=== PATIENT | female | born 1965 | race Caucasian/White ===

== ENCOUNTER 2019-04-08 08:46 | Emergency (ER) | payer BC ==
--- OUTSIDE RECORDS SUMMARY | 2019-04-08 08:51 | XMS REPORT ---
:1965 Author Organization [facility] Address [address] [place] [address] [address] [place] [address] Care Team Providers Name Role Phone ISAIAS TEIXEIRA YANCY Unavailable Unavailable Problems This patient has no known problems. Allergies, Adverse Reactions, Alerts This patient has no known allergies or adverse reactions. Medications This patient has no known medications. Results Test Description Test Time Test Comments Text Results Atomic Results Result Comments PT/APTT 2016-08-22 12:16:00 Test Item Value Reference Range Comments PROTIME (BEAKER) (test hlqi=755) 10.8 seconds 9.3-12.0 INR (BEAKER) (test nhfv=810) 1.0 <=5.9 PARTIAL THROMBOPLASTIN TIME (BEAKER) (test esry=845) 28.1 seconds 23.0-35.0 RECOMMENDED COUMADIN/WARFARIN INR THERAPY RANGESSTANDARD DOSE: 2.0 - 3.0 Includes: PROPHYLAXIS forvenous thrombosis, systemic embolization; TREATMENT for venous thrombosis and/or pulmonary embolus.HIGH RISK: Target INR is 2.5-3.5 for patients with mechanical heart valves.BASIC METABOLIC [id number] 12:04: 00 Test Item Value Reference Range Comments SODIUM (BEAKER) (test 143 meq/L 135-148 ifdg=334) POTASSIUM (BEAKER) (test 4.0 meq/L 3.6-5.5 idtb=894) CHLORIDE (BEAKER) (test 105 meq/L 98-106 rnma=569) CO2 (BEAKER) (test 30 meq/L 20-29 icwa=863) BLOOD UREA NITROGEN 17 mg/dL 10-26 (BEAKER) (test xdoh=977) CREATININE (BEAKER) (test 0.80 mg/dL 0.50-1.20 esut=333) GLUCOSE RANDOM (BEAKER) 81 mg/dL 70-110 (test gfwb=014) CALCIUM (BEAKER) (test 9.1 mg/dL 8.5-10.5 hqkz=916) EGFR (BEAKER) (test 77 mL/min/1.73 sq m ESTIMATED GFR IS NOT udov=2564) ACCURATE CREATININE CLEARANCE IN PREDICTING GLOMERULAR FILTRATION RATE. ESTIMATED GFR IS NOT APPLICABLE FOR DIALYSIS PATIENTS. SCREEN, [id number] 11:57:00 Test Item Value Reference Range Comments TEST URINE (BEAKER) (test hfjl=318) Negative CBC W/PLT COUNT & AUTO [id number] 11:55:00 Test Item Value Reference Range Comments WHITE BLOOD CELL COUNT (BEAKER) (test qvaf=084) 4.7 K/ L 4.0-10.0 RED BLOOD CELL COUNT (BEAKER) (test jcbd=650) 4.69 M/ L 4.00-5.00 HEMOGLOBIN (BEAKER) (test yihz=044) 12.5 GM/DL 12.0-15.0 HEMATOCRIT (BEAKER) (test mkfb=560) 38.6 % 36.0-45.0 MEAN CORPUSCULAR VOLUME (BEAKER) (test dwnu=790) 82.3 fL 82.0-99.0 MEAN CORPUSCULAR HEMOGLOBIN (BEAKER) (test 26.7 pg 27.0-33.0 javk=160) MEAN CORPUSCULAR HEMOGLOBIN CONC (BEAKER) (test 32.4 GM/DL 32.0-36.0 qpig=879) RED CELL DISTRIBUTION WIDTH (BEAKER) (test 16.3 % 10.3-14.2 zlyn=683) PLATELET COUNT (BEAKER) (test hjxt=478) 161 K/CU MM 150-430 MEAN PLATELET VOLUME (BEAKER) (test rmha=526) 8.2 fL 6.5-10.5 NUCLEATED RED BLOOD CELLS (BEAKER) (test 0 /100 WBC 0-0 atoy=190) NEUTROPHILS RELATIVE PERCENT (BEAKER) (test 67 % caeu=829) LYMPHOCYTES RELATIVE PERCENT (BEAKER) (test 26 % gcmz=103) MONOCYTES RELATIVE PERCENT (BEAKER) (test 5 % gglh=244) EOSINOPHILS RELATIVE PERCENT (BEAKER) (test 2 % nrji=699) BASOPHILS RELATIVE PERCENT (BEAKER) (test 0 % paee=538) NEUTROPHILS ABSOLUTE COUNT (BEAKER) (test 3.10 K/ L 1.80-8.00 blid=258) LYMPHOCYTES ABSOLUTE COUNT (BEAKER) (test 1.20 K/ L 1.48-4.50 gvvx=214) MONOCYTES ABSOLUTE COUNT (BEAKER) (test 0.20 K/ L 0.00-1.30 mego=236) EOSINOPHILS ABSOLUTE COUNT (BEAKER) (test 0.10 K/ L 0.00-0.50 ccjg=921) BASOPHILS ABSOLUTE COUNT (BEAKER) (test 0.00 K/ L 0.00-0.20 mdtk=782)
[2019-04-08] MEDS ORDERED: DIAZEPAM 10 MG/2 ML INJ SYRINGE ONE (09:21)
[2019-04-08] MEDS ORDERED: dexAMETHasone 10 MG/ML VIAL ONE (09:22)
[2019-04-08] MEDS ORDERED: ONDANSETRON 4 MG/2 ML VIAL ONE (09:22)
[2019-04-08] MEDS ORDERED: MORPHINE 4 MG/ML SYR ONE (09:22)
[2019-04-08 10:16] LABS: Urine Blood NEGATIVE (NEG); Urine Glucose NEGATIVE (NEG); Urine Protein NEGATIVE (NEG)
--- NOTE | 2019-04-08 10:26 | ER ---
Nurse's Notes [facility] Name: Marcelina Quinn Age: 53 yrs Sex: Female : 1965 Arrival Date: 04/08/2019 Time: 08:47 Bed 20 Private MD: Diagnosis: Low back pain Presentation: 04/08 08:58 Presenting complaint: Patient states: low back pain that began 4 days ago. No known ss injury. Transition of care: patient was not received from another setting of care. Onset of symptoms was April 04, 2019. Risk Assessment: Do you want to hurt yourself or someone else? Patient reports no desire to harm self or others. Initial Sepsis Screen: Does the patient meet any 2 criteria? No. Patient's initial sepsis screen is negative. Does the patient have a suspected source of infection? No. Patient's initial sepsis screen is negative. Care prior to arrival: None. 08:58 Method Of Arrival: Ambulatory ss 08:58 Acuity: DIDI 4 ss Historical: - Allergies: 08:59 No Known Allergies; ss - Home Meds: 08:59 None [Active]; ss - PMHx: 08:59 Colon CA; ss - PSHx: 08:59 Breast Augmentation; Colon Resection; ss - Immunization history:: Adult Immunizations up to date. - Social history:: Smoking status: Patient/guardian denies using tobacco. - Ebola Screening: : Patient denies exposure to infectious person Patient denies travel to an Ebola-affected area in the 21 days before illness onset. Screenin:01 Abuse screen: Denies threats or abuse. Nutritional screening: No deficits noted. em Tuberculosis screening: No symptoms or risk factors identified. Fall Risk None identified. Assessment: 09:01 General: Appears in no apparent distress. uncomfortable, well groomed, well developed, em well nourished, Behavior is calm, cooperative, Denies fever. Pain: Complains of pain in lumbar area Pain currently is 9 out of 10 on a pain scale. Neuro: Level of Consciousness is awake, alert, obeys commands, Oriented to person, place, time, situation, Appropriate for age. Cardiovascular: Capillary refill < 3 seconds Patient's skin is warm and dry. Respiratory: Airway is patent Respiratory effort is even, unlabored, Respiratory pattern is regular, symmetrical. GI: Patient currently denies nausea, vomiting. : Denies burning with urination. Derm: Skin is intact, is healthy with good turgor, Skin is pink, warm \T\ dry. Musculoskeletal: Capillary refill < 3 seconds, Range of motion: intact in all extremities. 09:05 Reassessment: The previous assessment is accurate. Call light remains within reach. ss 10:01 Reassessment: Patient appears in no apparent distress at this time. Patient and/or em family updated on plan of care and expected duration. Pain level reassessed. Patient is alert, oriented x 3, equal unlabored respirations, skin warm/dry/pink. rates pain 4/10, ambulated to restroom for UA Patient states feeling better. Patient states symptoms have improved. Vital Signs: 08:59 Pulse 76; Resp 17; Pulse Ox 97% on R/A; Weight 90.72 kg; Height 5 ft. 4 in. (162.56 ss cm); Pain 9/10; 09:01 BP 113 / 88; Temp 98.1(O); em 10:16 BP 107 / 64; Pulse 57; Resp 16; Pulse Ox 98% on R/A; Pain 4/10; em 08:59 Body Mass Index 34.33 (90.72 kg, 162.56 cm) ED Course: 08:47 Patient arrived in ED. as 08:53 Wu Shah LVN is Primary Nurse. em 08:54 Hunter Akbar PA is PHCP. m 08:54 Gabe Avila MD is Attending Physician. m 08:58 Triage completed. ss 08:59 Arm band placed on right wrist. ss 09:01 Patient has correct armband on for positive identification. Bed in low position. Call em light in reach. Adult w/ patient. Pulse ox on. NIBP on. 09:15 Inserted saline lock: 22 gauge in left antecubital area, using aseptic technique. em 10:18 Urine collected: clean catch specimen, clear. em 10:26 No provider procedures requiring assistance completed. IV discontinued, intact, em bleeding controlled, No redness/swelling at site. Pressure dressing applied. Administered Medications: 09:27 Drug: Zofran 4 mg Route: IVP; Site: left antecubital; ss 10:15 Follow up: Response: No adverse reaction em 09:30 Drug: Decadron - Dexamethasone 10 mg Route: IVP; Site: left antecubital; ss 10:14 Follow up: Response: No adverse reaction; Marked relief of symptoms; Pain is decreased em 09:32 Drug: morphine 4 mg Route: IVP; Site: left antecubital; ss 10:15 Follow up: Response: No adverse reaction; Marked relief of symptoms; Pain is decreased em 09:34 Drug: Valium 5 mg Route: IVP; Site: left antecubital; ss 10:15 Follow up: Response: No adverse reaction; Marked relief of symptoms; Pain is decreased em Outcome: 10:25 Discharge ordered by . isiah 10:26 Discharged to home ambulatory, with family. em 10:26 Condition: good 10:26 Discharge instructions given to patient, family, Instructed on discharge instructions, follow up and referral plans. no drinking with medication, no driving heavy equipment, medication usage, Demonstrated understanding of instructions, follow-up care, medications, Prescriptions given X 3. 10:36 Patient left the ED. em Signatures: Hunter Akbar PA PA jmm Munoz, Edgar, EMBROIDERY FINISHER EMBROIDERY FINISHER em Oriana Montgomery Shelby, RN RN ss Corrections: (The following items were deleted from the chart) 09:02 09:01 BP 113 / 88; Pulse Ox 98.1% RA; em em
--- NOTE | 2019-04-08 10:27 | EDPHYS ---
Physician Documentation [facility] Name: Marcelina Quinn Age: 53 yrs Sex: Female : 1965 Arrival Date: 04/08/2019 Time: 08:47 Bed 20 Private MD: ED Physician Gabe Avila HPI: 04/08 09:20 This 53 yrs old Female presents to ER via Ambulatory with complaints of Low jmm Back Pain. 09:20 The patient presents with pain that is acute. Onset: The symptoms/episode jmm began/occurred gradually, 4 day(s) ago. Modifying factors: The patient symptoms are alleviated by nothing, the patient symptoms are aggravated by movement. Associated signs and symptoms: Pertinent negatives: abdominal pain, dysuria, fever, incontinence, urinary retention, weakness. Historical: - Allergies: 08:59 No Known Allergies; ss - Home Meds: 08:59 None [Active]; ss - PMHx: 08:59 Colon CA; ss - PSHx: 08:59 Breast Augmentation; Colon Resection; ss - Immunization history:: Adult Immunizations up to date. - Social history:: Smoking status: Patient/guardian denies using tobacco. - Ebola Screening: : Patient denies exposure to infectious person Patient denies travel to an Ebola-affected area in the 21 days before illness onset. ROS: 09:20 Constitutional: Negative for fever, chills, and weight loss, Cardiovascular: Negative jmm for chest pain, palpitations, and edema, Respiratory: Negative for shortness of breath, cough, wheezing, and pleuritic chest pain. 09:20 MS/Extremity: Negative for injury and deformity. 09:20 Back: Positive for pain with movement, no midline tenderness is appreciated. 09:20 All other systems are negative. Exam: 09:20 Head/Face: atraumatic. Eyes: EOMI, no conjunctival erythema appreciated ENT: Moist jmm Mucus Membranes Neck: Trachea midline, Supple Chest/axilla: Normal chest wall appearance and motion. Cardiovascular: Regular rate and rhythm. No edema appreciated Respiratory: Normal respirations, no respiratory distress appreciated Abdomen/GI: Non distended, soft 09:20 Skin: General appearance color normal MS/ Extremity: Moves all extremities, no obvious deformities appreciated, no edema noted to the lower extremities Neuro: Awake and alert, normal gait Psych: Behavior is normal, Mood is normal, Patient is cooperative and pleasant 09:20 Constitutional: The patient appears alert, awake, uncomfortable. 09:20 Back: ROM is painful, vertebral tenderness, is not appreciated. Vital Signs: 08:59 Pulse 76; Resp 17; Pulse Ox 97% on R/A; Weight 90.72 kg; Height 5 ft. 4 in. (162.56 ss cm); Pain 9/10; 09:01 BP 113 / 88; Temp 98.1(O); em 10:16 BP 107 / 64; Pulse 57; Resp 16; Pulse Ox 98% on R/A; Pain 4/10; em 08:59 Body Mass Index 34.33 (90.72 kg, 162.56 cm) ss MDM: 09:04 Patient medically screened. [facility] 10:21 Data reviewed: vital signs, nurses notes. Counseling: I had a detailed discussion with isiah the patient and/or guardian regarding: the historical points, exam findings, and any diagnostic results supporting the discharge/admit diagnosis, lab results, the need for outpatient follow up, to return to the emergency department if symptoms worsen or persist or if there are any questions or concerns that arise at home. ED course: Pain is relieved in the ED. Patient advised to follow up with pcp and otherwise given strict return precautions. Patient understood and agrees with the plan of care. . 04/08 10:13 Order name: Urine Dipstick--Ancillary (enter results); Complete Time: 10:26 04/08 09:05 Order name: Urine Dipstick-Ancillary (obtain specimen); Complete Time: 10:18 [facility] 04/08 09:13 Order name: Saline Lock; Complete Time: 09:17 [facility] Administered Medications: 09:27 Drug: Zofran 4 mg Route: IVP; Site: left antecubital; ss 10:15 Follow up: Response: No adverse reaction em 09:30 Drug: Decadron - Dexamethasone 10 mg Route: IVP; Site: left antecubital; ss 10:14 Follow up: Response: No adverse reaction; Marked relief of symptoms; Pain is decreased em 09:32 Drug: morphine 4 mg Route: IVP; Site: left antecubital; ss 10:15 Follow up: Response: No adverse reaction; Marked relief of symptoms; Pain is decreased em 09:34 Drug: Valium 5 mg Route: IVP; Site: left antecubital; ss 10:15 Follow up: Response: No adverse reaction; Marked relief of symptoms; Pain is decreased em Disposition: 15:18 Co-signature as Attending Physician, Gabe Avila MD. ma2 Disposition: 04/08/19 10:25 Discharged to Home. Impression: Low back pain. - Condition is Stable. - Discharge Instructions: Back Pain, Adult. - Prescriptions for Valium 5 mg Oral Tablet - take 1 tablet by ORAL route every 8 hours As needed; 20 tablet. Tramadol 50 mg Oral Tablet - take 1 tablet by ORAL route every 8 hours as needed; 12 tablet. Ibuprofen 800 mg Oral Tablet - take 1 tablet by ORAL route every 8 hours As needed take with food; 30 tablet. - Medication Reconciliation Form, Thank You Letter, Antibiotic Education, Prescription Opioid Use form. - Follow up: Private Physician; When: 2 - 3 days; Reason: Recheck today's complaints, Continuance of care, Re-evaluation by your physician. Signatures: Dispatcher [employer] Hunter Diaz PA PA jmm Munoz, Edgar, COMMUNICATION INSTRUCTOR COMMUNICATION INSTRUCTOR Katia Car RN RN ss Alzahri, Mohammad, MD MD ma2 Corrections: (The following items were deleted from the chart) 10:36 10:25 04/08/2019 10:25 Discharged to Home. Impression: Low back pain. Condition is em Stable. Forms are Medication Reconciliation Form, Thank You Letter, Antibiotic Education, Prescription Opioid Use. Follow up: Private Physician; When: 2 - 3 days; Reason: Recheck today's complaints, Continuance of care, Re-evaluation by your physician. isiah
[2019-04-08 10:50] VITALS: BP 107/64; TEMP 98.1; O2SAT 98
== END 2019-04-08 10:36 | disposition home or self-care (01) ==
LOC: ER 08:46
DX: M54.5 Low back pain (principal); Z85.038 Personal history of other malignant neoplasm of large intestine; Z98.82 Breast implant status
CPT/HCPCS: 81003; 96375; 96374; 99284; J3360; J1100; J2405

== ENCOUNTER 2021-01-12 10:06 | Observation (INO) | payer BC ==
[2021-01-12 10:54] LABS: Absolute Lymphocytes (CBC) 2.4 K/uL (0.7-4.9); Basophils % 0.3 % (0-1.3); Hematocrit 41.2 % (36.0-45.0); Lymphocytes % 22.4 % (15.3-44.8); MPV 8.6 fL (7.6-11.3); RBC Red Blood Cell Count 4.59 M/uL (3.86-4.86)
[2021-01-12 10:57] LABS: Protime INR 1.32
--- NOTE | 2021-01-12 11:02 | ER ---
Nurse's Notes [facility] Name: Marcelina Quinn Age: 55 yrs Sex: Female : 1965 Arrival Date: 01/12/2021 Time: 10:23 Bed 15 Private MD: Diagnosis: GI Bleed/ Gastrointestinal hemorrhage, unspecified-lower , sp biopsy;Hypokalemia Presentation: 01/12 10:23 Chief complaint: EMS states: bleed post polypectomy. Coronavirus screen: Vaccine oh status: Patient reports receiving the 2nd dose of the covid vaccine. Ebola Screen: No symptoms or risks identified at this time. Initial Sepsis Screen: Does the patient meet any 2 criteria? No. Patient's initial sepsis screen is negative. Does the patient have a suspected source of infection? No. Patient's initial sepsis screen is negative. Risk Assessment: Do you want to hurt yourself or someone else? Patient reports no desire to harm self or others. Onset of symptoms was January 12, 2021. 10:23 Method Of Arrival: EMS: [facility] [place] 10:23 Acuity: DIDI 3 oh Triage Assessment: 10:28 General: Appears comfortable, Behavior is calm, cooperative, appropriate for age, oh Reports bleeding post polypectomy. Pain: Denies pain. 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 - Social history:: Smoking status: Patient denies any tobacco usage or history of. Patient/guardian denies using. - Family history:: not pertinent. Screenin:30 Abuse screen: Denies threats or abuse. Nutritional screening: No deficits noted. oh Tuberculosis screening: No symptoms or risk factors identified. Fall Risk None identified. Assessment: 10:30 GI: Rectal exam: Bleeding noted. oh 11:06 Reassessment: pt transported to endoscopy suite, for control of polypectomy bleed. oh Vital Signs: 10:23 BP 117 / 78; Pulse 86; Resp 23; Temp 97.9(O); Pulse Ox 100% ; Weight 82.55 kg; Height 5 oh ft. 3 in. (160.02 cm); 10:23 Body Mass Index 32.24 (82.55 kg, 160.02 cm) oh ED Course: 10:23 Patient arrived in ED. aa5 10:23 Yoshi Dodge, RN is Primary Nurse. oh 10:27 Triage completed. oh 10:29 Trung Hatch MD is Attending Physician. elizabeth 10:29 Patient 2 epi injected to bleeding site, 500 ml NS bolus given. oh 10:31 Maintain EMS IV. IV Changed dressing on Flushed. oh 10:32 Bed in low position. Side rails up X2. oh 10:55 XRAY Chest (1 view) In Process Unspecified. EDMS 10:59 Gurwinder Saleh MD is Hospitalizing Provider. elizabeth 11:06 Basic Metabolic Panel Sent. oh Administered Medications: 12:56 Discontinued: NS 0.9% 1000 ml IV at 125 ml/hr continuous elizabeth 11:03 Drug: Zosyn (piperacillin-tazobactam) 3.375 grams Route: IVPB; Infused Over: 60 mins; oh Site: left antecubital; 11:03 Drug: NS 0.9% 1000 ml Route: IV; Rate: 1 bolus; Site: left antecubital; oh 11:03 Drug: NS 0.9% 1000 ml Route: IV; Rate: 125 ml/hr; Site: left antecubital; oh 11:03 Drug: Pepcid (famotidine) 20 mg Route: IVP; Site: left antecubital; oh 13:20 Not Given (pt in [place]): NS 0.9% with KCl 20 mEq/L 1000 ml IV at 125 ml/hr continuous iw 13:21 Not Given (pt in [facility]): Potassium Effervescent Tablet 25 mEq PO once; dissolve in 4 iw ounces of water or juice Outcome: 11:02 Decision to Hospitalize by Provider. elizabeth 13:21 Patient left the ED. iw Signatures: Dispatcher [employer] EDOH Trung Hatch MD MD cha Williams, Irene, RN RN iw Nelida Neal RN RN aa5 Yoshi Dodge, RN RN oh
--- NOTE | 2021-01-12 11:02 | EDPHYS ---
Physician Documentation [facility] Name: Marcelina Quinn Age: 55 yrs Sex: Female : 1965 Arrival Date: 01/12/2021 Time: 10:23 Bed 15 Private MD: ANTHONY Physician Trung Hatch HPI: 01/12 11:02 This 55 yrs old Female presents to ER via EMS with complaints of lower gi elizabeth bleed. 11:02 The patient presents to the emergency department with rectal bleeding, bright red blood elizabeth with bowel movement, with multiple such episodes. Onset: The symptoms/episode began/occurred just prior to arrival, this morning. Abdominal pain: described as constant, crampy. Modifying factors: The symptoms are alleviated by nothing, the symptoms are aggravated by nothing. Associated signs and symptoms: The patient has no apparent associated signs or symptoms. Severity of symptoms: At their worst the symptoms were mild moderate in the emergency department the symptoms are unchanged. The patient has not experienced similar symptoms in the past. 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 - Social history:: Smoking status: Patient denies any tobacco usage or history of. Patient/guardian denies using. - Family history:: not pertinent. ROS: 11:02 Constitutional: Negative for fever, chills, and weight loss, Eyes: Negative for injury, elizabeth pain, redness, and discharge, ENT: Negative for injury, pain, and discharge, Neck: Negative for injury, pain, and swelling, Cardiovascular: Negative for chest pain, palpitations, and edema, Respiratory: Negative for shortness of breath, cough, wheezing, and pleuritic chest pain, Back: Negative for injury and pain, : Negative for injury, bleeding, discharge, and swelling, MS/Extremity: Negative for injury and deformity, Skin: Negative for injury, rash, and discoloration, Neuro: Negative for headache, weakness, numbness, tingling, and seizure, Psych: Negative for depression, anxiety, suicide ideation, homicidal ideation, and hallucinations, Allergy/Immunology: Negative for hives, rash, and allergies, Endocrine: Negative for neck swelling, polydipsia, polyuria, polyphagia, and marked weight changes, Hematologic/Lymphatic: Negative for swollen nodes, abnormal bleeding, and unusual bruising. 11:02 Abdomen/GI: Positive for abdominal pain, rectal bleeding. Exam: 11:02 Constitutional: This is a well developed, well nourished patient who is awake, alert, elizabeth and in no acute distress. Head/Face: Normocephalic, atraumatic. Eyes: Pupils equal round and reactive to light, extra-ocular motions intact. Lids and lashes normal. Conjunctiva and sclera are non-icteric and not injected. Cornea within normal limits. Periorbital areas with no swelling, redness, or edema. ENT: Nares patent. No nasal discharge, no septal abnormalities noted. Tympanic membranes are normal and external auditory canals are clear. Oropharynx with no redness, swelling, or masses, exudates, or evidence of obstruction, uvula midline. Mucous membranes moist. Neck: Trachea midline, no thyromegaly or masses palpated, and no cervical lymphadenopathy. Supple, full range of motion without nuchal rigidity, or vertebral point tenderness. No Meningismus. Chest/axilla: Normal chest wall appearance and motion. Nontender with no deformity. No lesions are appreciated. Cardiovascular: Regular rate and rhythm with a normal S1 and S2. No gallops, murmurs, or rubs. Normal PMI, no JVD. No pulse deficits. Respiratory: Lungs have equal breath sounds bilaterally, clear to auscultation and percussion. No rales, rhonchi or wheezes noted. No increased work of breathing, no retractions or nasal flaring. Abdomen/GI: Soft, non-tender, with normal bowel sounds. No distension or tympany. No guarding or rebound. No evidence of tenderness throughout. Back: No spinal tenderness. No costovertebral tenderness. Full range of motion. Skin: Warm, dry with normal turgor. Normal color with no rashes, no lesions, and no evidence of cellulitis. MS/ Extremity: Pulses equal, no cyanosis. Neurovascular intact. Full, normal range of motion. Neuro: Awake and alert, GCS 15, oriented to person, place, time, and situation. Cranial nerves II-XII grossly intact. Motor strength 5/5 in all extremities. Sensory grossly intact. Cerebellar exam normal. Normal gait. Psych: Awake, alert, with orientation to person, place and time. Behavior, mood, and affect are within normal limits. Vital Signs: 10:23 BP 117 / 78; Pulse 86; Resp 23; Temp 97.9(O); Pulse Ox 100% ; Weight 82.55 kg; Height 5 oh ft. 3 in. (160.02 cm); 10:23 Body Mass Index 32.24 (82.55 kg, 160.02 cm) oh MDM: 10:29 Patient medically screened. 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 Data reviewed: vital signs, [facility] nurses notes, EMS record, lab test result(s), EKG, radiologic studies, CT scan, plain films. Data interpreted: monitoring engineer: rate is 86 beats/min, rhythm is regular, Pulse oximetry: on room air is 100 %. Test interpretation: by ED physician or midlevel provider: ECG, plain radiologic studies. Counseling: I had a detailed discussion with the patient and/or guardian regarding: the historical points, exam findings, and any diagnostic results supporting the discharge/admit diagnosis, lab results, radiology results, the need for further work-up and treatment in the hospital. 01/12 10:37 Order name: Basic Metabolic Panel [facility] 01/12 10:37 Order name: CBC with Diff; Complete Time: 12:55 [facility] 01/12 10:37 Order name: LFT's; Complete Time: 12:55 [facility] 01/12 10:37 Order name: Magnesium; Complete Time: 12:55 [facility] 01/12 10:37 Order name: NT PRO-BNP; Complete Time: 12:55 [facility] 01/12 10:37 Order name: PT-INR; Complete Time: 12:55 [facility] 01/12 10:37 Order name: Troponin (emerg Dept Use Only); Complete Time: 12:55 [facility] 01/12 10:37 Order name: Lipase; Complete Time: 12:55 [facility] 01/12 10:37 Order name: Type And Screen; Complete Time: 12:55 [facility] 01/12 10:37 Order name: Basic Metabolic Panel; Complete Time: 12:55 [facility] 01/12 10:45 Order name: Bb Add On bd 01/12 11:08 Order name: Packed RBC Leukored [facility] 01/12 12:15 Order name: SARS-COV-2 RT PCR; Complete Time: 12:55 [facility] 01/12 10:37 Order name: XRAY Chest (1 view); Complete Time: 12:55 [facility] 01/12 10:37 Order name: EKG; Complete Time: 10:38 [facility] 01/12 12:12 Order name: Clear Liquid [facility] 01/12 12:43 Order name: Basic Metabolic Panel [facility] 01/12 12:43 Order name: Basic Metabolic Panel [facility] 01/12 12:43 Order name: T4 Free [facility] 01/12 12:43 Order name: Thyroid Stimulating Hormone [facility] 01/12 12:44 Order name: Urinalysis [facility] 01/12 12:44 Order name: CBC with Automated Diff [facility] 01/12 12:44 Order name: CBC with Automated Diff [facility] 01/12 10:37 Order name: Cardiac monitoring; Complete Time: 10:39 [facility] 01/12 10:37 Order name: IV Saline Lock; Complete Time: 10:39 [facility] 01/12 10:37 Order name: Labs collected and sent; Complete Time: 11:08 [facility] 01/12 10:37 Order name: O2 Per Protocol; Complete Time: 10:39 [facility] 01/12 10:37 Order name: O2 Sat Monitoring; Complete Time: 10:39 [facility] 01/12 12:43 Order name: Heart Healthy EDMT Administered Medications: 12:56 Discontinued: NS 0.9% 1000 ml IV at 125 ml/hr continuous elizabeth 11:03 Drug: Zosyn (piperacillin-tazobactam) 3.375 grams Route: IVPB; Infused Over: 60 mins; oh Site: left antecubital; 11:03 Drug: NS 0.9% 1000 ml Route: IV; Rate: 1 bolus; Site: left antecubital; oh 11:03 Drug: NS 0.9% 1000 ml Route: IV; Rate: 125 ml/hr; Site: left antecubital; oh 11:03 Drug: Pepcid (famotidine) 20 mg Route: IVP; Site: left antecubital; oh 13:20 Not Given (pt in [place]): NS 0.9% with KCl 20 mEq/L 1000 ml IV at 125 ml/hr continuous iw 13:21 Not Given (pt in [place]): Potassium Effervescent Tablet 25 mEq PO once; dissolve in 4 iw ounces of water or juice Disposition Summary: 01/12/21 11:02 Hospitalization Ordered Hospitalization Status: Observation elizabeth Provider: Gurwinder Saleh cha Location: Telemetry/MedSurg (observation) elizabeth Condition: Fair elizabeth Problem: new elizabeth Symptoms: have improved elizabeth Bed/Room Type: Standard elizabeth Room Assignment: 230(01/12/21 13:12) bd Diagnosis - GI Bleed/ Gastrointestinal hemorrhage, unspecified - lower , sp biopsy elizabeth - Hypokalemia elizabeth Discharge Instructions: - Discharge Summary Sheet bd Forms: - SBAR form bd - Medication Reconciliation Form elizabeth Signatures: Dispatcher [employer] EDMS Madonna Ramirez Corey, MD MD cha Harriott, Oneka, RN RN Becki Keating RN iw Corrections: (The following items were deleted from the chart) 11:16 10:38 CORONAVIRUS+BRZ ordered. EDMS EDMS 13:12 11:02 elizabeth bd
[2021-01-12] MEDS ORDERED: NA CHLORIDE 0.9% 100 ML ONE (11:08)
[2021-01-12] MEDS ORDERED: NA CHLORIDE 0.9% 2,000 ML ONE (11:08)
[2021-01-12] MEDS ORDERED: PIPERACIL/TAZO 3.375 GM VIAL IV ONE (11:09)
[2021-01-12] MEDS ORDERED: FAMOTIDINE 20 MG/2 ML VIAL IV ONE (11:09)
[2021-01-12 11:11] LABS: ALT/SGPT 33 U/L (12-78); AST/SGOT 27 U/L (15-37); Albumin 4.1 g/dL (3.4-5.0); Alkaline Phosphatase 115 U/L (45-117); BUN Blood Urea Nitrogen 13 mg/dL (7-18); Bicarbonate 21 mmol/L (21-32); Bilirubin Direct 0.5 mg/dL (0-0.2); Bilirubin Total 2.7 mg/dL (0.2-1.0); Glucose Level 180 mg/dL (74-106); Lipase 72 U/L (73-393); Magnesium 2.3 mg/dL (1.8-2.4); NT PRO-BNP 95 pg/mL (<125); Protein, Total 7.4 g/dL (6.4-8.2); Sodium Level 142 mmol/L (136-145); Troponin (Emerg Dept Use Only) < 0.02 ng/mL (0.0-0.045)
[2021-01-12] MEDS ORDERED: EPINEPHRINE/PF 1 MG/ML AMP ONE (11:25)
[2021-01-12] MEDS ORDERED: propofoL 200 MG/20 ML VIAL IV ONE (11:45)
[2021-01-12] MEDS ORDERED: LIDOCAINE 1% MPF 5 ML VIAL ONE (11:45)
--- NOTE | 2021-01-12 12:23 | RAD REPORT ---
EXAM DESCRIPTION: RAD - Chest Single View - 01/12/2021 10:55 am CLINICAL HISTORY: COUGH COMPARISON: None TECHNIQUE: AP portable chest image was obtained 01/12/2021 10:55 am . FINDINGS: Lungs are clear. Under penetrated technique and overlying soft tissues accentuate lower cecelia ng field markings. Heart and vasculature are normal. No measurable pleural effusion and no pneumothor ax. No acute bony abnormality seen. No acute aortic findings suspected. IMPRESSION: No acute cardiopulmonary process.
[2021-01-12] MEDS ORDERED: ONDANSETRON 4 MG/2 ML VIAL IV PRN (12:36)
[2021-01-12] MEDS ORDERED: ACETAMINOPHEN 500 MG TAB PO PRN (12:36)
[2021-01-12 13:49] LABS: Thyroid Stimulating Hormone 2.63 uIU/mL (0.360-3.740)
--- NOTE | 2021-01-12 14:22 | P.HP ---
Certification for Inpatient Patient admitted to: Observation With expected LOS: <2 Midnights Patient will require the following post-hospital care: None Practitioner: I am a practitioner with admitting privileges, knowledge of patient current condition, hospital course, and medical plan of care. Services: Services provided to patient in accordance with Admission requirements found in Title 42 Section 412.3 of the Code of Federal Regulations Patient History Date of Service: 01/12/21 Primary Care Provider: Dr. Marroquin; GI-Dr. Cohen/Dr. Johnson Reason for admission: Acute bleeding after colonoscopy History of Present Illness: 55-year-old female presented to the emergency room after she had a colonoscopy. Patient has history of colon cancer status post colectomy with anastomosis. Patient had routine colonoscopy for follow-up. Patient had biopsy done to a particular area of the colon. Bleeding was noted after biopsy. GI tried to stop the bleeding. Bleeding persisted. She was brought in to the hospital for emergent colonoscopy and clipping. Patient reported no significant abdominal pain. Some mild clots from the rectum. Otherwise no significant shortness of breath. By the time I saw the patient she had already had repeat colonoscopy with clipping. Patient overall stable. No complaints noted. Allergies No Known Allergies Allergy (Verified 01/12/21 12:05) Home medications list reviewed: Yes - Past Medical/Surgical History Diabetic: No -: Hypothyroidism -: Colon cancer with history of colectomy/anastomosis and chemotherapy -: Colectomy with anastomosis and lymph node removal Psychosocial/ Personal History: Patient lives at home - Family History Family History: Reviewed- Non-Contributory - Social History Smoking Status: Never smoker Alcohol use: No CD- Drugs: No Caffeine use: No Place of Residence: Home Review of Systems General: As per HPI Eyes: Unremarkable ENT: Unremarkable Respiratory: Unremarkable Cardiovascular: Unremarkable Gastrointestinal: As per HPI Genitourinary: Unremarkable Musculoskeletal: Unremarkable Integumentary: Unremarkable Neurological: Unremarkable Lymphatics: Unremarkable Physical Examination - Vital Signs Temperature: 98.3 F Blood Pressure: 101/56 Pulse: 69 Respirations: 18 Pulse Ox (%): 98 - Studies Laboratory Data (last 24 hrs) 01/12/21 10:40: PT 15.2 H, INR 1.32 01/12/21 10:40: WBC 10.90, Hgb 14.0, Hct 41.2, Plt Count 231 01/12/21 10:40: Sodium 142, Potassium 3.0 L, BUN 13, Creatinine 0.88, Glucose 180 H, Magnesium 2.3, Total Bilirubin 2.7 H, AST 27, ALT 33, Alkaline Phosphatase 115, Lipase 72 L Assessment and Plan - Plan Physical Exam: GENERAL: The patient is a well-developed, well-nourished, in no apparent distress. Alert and oriented x3. VITAL SIGNS: Reviewed HEENT: Head is normocephalic and atraumatic. Extraocular muscles are intact. Pupils are equal, round, and reactive to light and accommodation. Nares appeared normal. Mouth is well hydrated and without lesions. Mucous membranes are moist. NECK: Supple. No carotid bruits. No lymphadenopathy or thyromegaly. LUNGS: Clear to auscultation. No crackles or wheezes are heard. HEART: Regular rate and rhythm, no appreciable gallops, rubs, murmurs or extra heart sounds ABDOMEN: Soft, nontender, and nondistended. Positive bowel sounds. No hepatosplenomegaly was noted. EXTREMITIES: Without any cyanosis, clubbing, rash, lesions or peripheral edema. NEUROLOGIC: The patient is oriented to person, place and time. Strength and sensation are grossly intact. Face is symmetric. SKIN: Normal color, turgor and temperature. No ulcerations or rashes noted. Impression: Lower GI bleed status post colonoscopy with biopsy status post redo colonoscopy with clipping History of colon cancer with prior colectomy and anastomosis with chemo Hypothyroidism Plan: Patient stable after repeat colonoscopy. Clipping done by GI. Spoke with GI. GI recommends to monitor patient overnight. Monitor hemoglobin. If stable patient can be discharged home tomorrow. Patient doing well at this time. Restart home medication. Overall stable. Code Status: Full Code DVT prophylaxis: SCD Advanced Care Planning-30 minutes: Home at discharge Discharge Plan: Home Plan to discharge in: 24 Hours - Advance Directives Does patient have a Living Will: No Does patient have a Durable POA for Healthcare: No - Code Status/Comfort Care Code Status Assessed: Yes (Full code) Time Spent Managing Pts Care (In Minutes): 55
[2021-01-12] MEDS ORDERED: HYDROCODONE/APAP 5/325 MG TAB PO PRN (14:32)
[2021-01-12 14:53] VITALS: BMI 32.2
[2021-01-12] MEDS: METRONIDAZOLE 500mg IVPB 500 MG/100 ML BAG IV SCH (17:58)
[2021-01-12] MEDS: CIPROFLOXACIN 400mg IV 400 MG/200 ML BAG IV SCH (20:26)
[2021-01-12] MEDS ORDERED: MELATONIN 5 MG TABLET PO PRN (20:44)
[2021-01-12] MEDS ORDERED: POTASSIUM CL SA 10 MEQ TAB PO ONE (21:00)
[2021-01-13] MEDS: METRONIDAZOLE 500mg IVPB 500 MG/100 ML BAG IV SCH ×2 (00:06→11:35)
[2021-01-13 05:45] LABS: Absolute Lymphocytes (CBC) 0.7 K/uL (0.7-4.9); Basophils % 0.2 % (0-1.3); Hematocrit 34.5 % (36.0-45.0); Lymphocytes % 21.7 % (15.3-44.8); MPV 8.7 fL (7.6-11.3); RBC Red Blood Cell Count 3.89 M/uL (3.86-4.86)
[2021-01-13 05:54] LABS: BUN Blood Urea Nitrogen 9 mg/dL (7-18); Bicarbonate 24 mmol/L (21-32); Glucose Level 97 mg/dL (74-106); Potassium 3.8 mmol/L (3.5-5.1); Sodium Level 143 mmol/L (136-145)
--- NOTE | 2021-01-13 06:12 | P.PN ---
Subjective Date of Service: 01/13/21 Primary Care Provider: Dr. Marroquin; GI-Dr. Cohen/Dr. Johnson Chief Complaint: Acute bleeding after colonoscopy Subjective: Improving (Patient had some mild bleeding from the rectum but otherwise stable.) Physical Examination - Vital Signs Temperature: 97.8 F Blood Pressure: 97/61 Pulse: 63 Respirations: 18 Pulse Ox (%): 97 - Studies Laboratory Data (last 24 hrs) 01/12/21 10:40: PT 15.2 H, INR 1.32 01/12/21 10:40: WBC 10.90, Hgb 14.0, Hct 41.2, Plt Count 231 01/12/21 10:40: Sodium 142, Potassium 3.0 L, BUN 13, Creatinine 0.88, Glucose 180 H, Magnesium 2.3, Total Bilirubin 2.7 H, AST 27, ALT 33, Alkaline Phosphatase 115, Lipase 72 L Assessment & Plan Discharge Plan: Home Plan to discharge in: 24 Hours Physician Review Additional Text: COVID: Negative Physical Exam: GENERAL: The patient is a well-developed, well-nourished, in no apparent distress. Alert and oriented x3. VITAL SIGNS: Reviewed HEENT: Head is normocephalic and atraumatic. Extraocular muscles are intact. Pupils are equal, round, and reactive to light and accommodation. Nares appeared normal. Mouth is well hydrated and without lesions. Mucous membranes are moist. NECK: Supple. No carotid bruits. No lymphadenopathy or thyromegaly. LUNGS: Clear to auscultation. No crackles or wheezes are heard. HEART: Regular rate and rhythm, no appreciable gallops, rubs, murmurs or extra heart sounds ABDOMEN: Soft, nontender, and nondistended. Positive bowel sounds. No hepatosplenomegaly was noted. EXTREMITIES: Without any cyanosis, clubbing, rash, lesions or peripheral edema. NEUROLOGIC: The patient is oriented to person, place and time. Strength and sensation are grossly intact. Face is symmetric. SKIN: Normal color, turgor and temperature. No ulcerations or rashes noted. Impression: Lower GI bleed status post colonoscopy with biopsy status post redo colonoscopy with clipping History of colon cancer with prior colectomy and anastomosis with chemo Hypothyroidism Plan: Patient stable after repeat colonoscopy. Clipping done by GI. Spoke with GI yesterday concerning plan of care. H&H stable. It did drop to 11.8. Prior hemoglobin 14.0. We will plan for discharge today after breakfast. Code Status: Full Code DVT prophylaxis: SCD Advanced Care Planning-30 minutes: Home at discharge Time Spent Managing Pts Care (In Minutes): 55
[2021-01-13 08:44] VITALS: O2SAT 97
[2021-01-13] MEDS ORDERED: POTASSIUM CL SA 10 MEQ TAB PO ONE (09:00)
--- NOTE | 2021-01-13 09:07 | P.DS ---
Admission Date: 01/12/21 Discharge Date: 01/13/21 Primary Care Provider: Dr. Marroquin; GI-Dr. Cohen/Dr. Johnson Disposition: ROUTINE DISCHARGE Discharge Condition: GOOD Reason for Admission: Acute bleeding after colonoscopy Consultations: GI-Dr. Johnson Procedures: COVID: Negative Medical problem list: Lower GI bleed status post colonoscopy with biopsy status post redo colonoscopy with clipping History of colon cancer with prior colectomy and anastomosis with chemo Hypothyroidism Brief History of Present Illness: 55-year-old female presented to the emergency room after she had a colonoscopy. Patient has history of colon cancer status post colectomy with anastomosis. Patient had routine colonoscopy for follow-up. Patient had biopsy done to a particular area of the colon. Bleeding was noted after biopsy. GI tried to stop the bleeding. Bleeding persisted. She was brought in to the hospital for emergent colonoscopy and clipping. Patient reported no significant abdominal pain. Some mild clots from the rectum. Otherwise no significant shortness of breath. By the time I saw the patient she had already had repeat colonoscopy with clipping. Patient overall stable. No complaints noted. Hospital Course: Patient with history of colon cancer with colectomy and anastomosis. Patient received chemotherapy in the past. Patient had routine colonoscopy yesterday. After biopsy patient had bleeding that was uncontrolled. Patient required hospitalization with repeat colonoscopy in the hospital with clipping to control bleeding. Patient has done well. Hemoglobin upon hospitalization was 14. Hemoglobin 11.8. Patient doing well at this time. No indication of further bleeding. Patient will be discharged home. Recommend to continue home medications. Recommend follow-up with PCP in 1 week to follow-up his hospitalization. Recommend to recheck CBC in 1 week to follow-up her progress. Recommend follow-up with GI to further monitor and address. GI to follow-up on recent biopsy. Patient with hypothyroidism. At discharge patient will continue with her current medication. Vital Signs/Physical Exam: Temp Pulse Resp BP Pulse Ox 97.8 F 63 18 97/61 97 01/13/21 09:04 01/13/21 09:04 01/13/21 09:04 01/13/21 09:04 01/13/21 09:04 General: Alert, In no apparent distress, Oriented x3, Cooperative HEENT: Atraumatic Neck: Supple Respiratory: Clear to auscultation bilaterally Cardiovascular: Normal pulses, Regular rate/rhythm Gastrointestinal: Normal bowel sounds, No ascites, No rebound, No guarding Musculoskeletal: No erythema, No tenderness, No warmth Integumentary: No tenderness/swelling Neurological: Normal speech, Normal strength at 5/5 x4 extr, Normal tone Laboratory Data at Discharge: WBC 3.10 K/uL (4.3-10.9) L D 01/13/21 05:05 Hgb 11.8 g/dL (12.0-15.0) L 01/13/21 05:05 Hct 34.5 % (36.0-45.0) L D 01/13/21 05:05 Plt Count 100 K/uL (152-406) L D 01/13/21 05:05 PT 15.2 SECONDS (9.5-12.5) H 01/12/21 10:40 INR 1.32 01/12/21 10:40 Sodium 143 mmol/L (136-145) 01/13/21 05:05 Potassium 3.8 mmol/L (3.5-5.1) 01/13/21 05:05 BUN 9 mg/dL (7-18) 01/13/21 05:05 Creatinine 0.57 mg/dL (0.55-1.3) 01/13/21 05:05 Glucose 97 mg/dL (74-106) 01/13/21 05:05 Magnesium 2.3 mg/dL (1.8-2.4) 01/12/21 10:40 Total Bilirubin 2.7 mg/dL (0.2-1.0) H 01/12/21 10:40 AST 27 U/L (15-37) 01/12/21 10:40 ALT 33 U/L (12-78) 01/12/21 10:40 Alkaline Phosphatase 115 U/L (45-117) 01/12/21 10:40 Lipase 72 U/L (73-393) L 01/12/21 10:40 Home Medications: Melatonin 10 mg PO BEDTIME PRN PRN 01/12/21 Progesterone, Micronized [Progesterone] 200 mg PO BEDTIME 01/12/21 Thyroid,Pork [Twist Tester Thyroid] 30 mg PO DAILY 01/12/21 Physician Discharge Instructions: Patient with history of colon cancer with colectomy and anastomosis. Patient received chemotherapy in the past. Patient had routine colonoscopy yesterday. After biopsy patient had bleeding that was uncontrolled. Patient required hospitalization with repeat colonoscopy in the hospital with clipping to control bleeding. Patient has done well. Hemoglobin upon hospitalization was 14. Hemoglobin 11.8. Patient doing well at this time. No indication of further b leeding. Patient will be discharged home. Recommend to continue home medications. Recommend follow-up with PCP in 1 week to follow-up his hospitalization. Recommend to recheck CBC in 1 week to follow-up her progress. Recommend follow-up with GI to further monitor and address. GI to follow-up on recent biopsy. Patient with hypothyroidism. At discharge patient will continue with her current medication. Diet: GI soft Activity: Ad ernie Followup: Manuel Marroquin MD [Primary Care Provider] - Time spent managing pt's care (in minutes): 55
[2021-01-13] MEDS: CIPROFLOXACIN 400mg IV 400 MG/200 ML BAG IV SCH (09:26)
[2021-01-13] MEDS ORDERED: NA CHLORIDE 0.9% 1,000 ML IV ONE (09:58)
[2021-01-13] MEDS ORDERED: NA CHLORIDE 0.9% 100 ML ONE (10:21)
[2021-01-13 13:14] VITALS: TEMP 98.2
[2021-01-13 13:58] VITALS: BP 102/66
--- NOTE | 2021-01-14 11:32 | OP ---
Surgeon: Froylan Johnson MD Procedure Performed: Colonoscopy. Indication For Procedure: Post polypectomy bleeding. Plan For Anesthesia: Monitored anesthesia care. Complexity: Average. Technique: After obtaining informed consent from the patient and explaining risks and complications, which include, but are not limited to bleeding, infection, perforation, and anesthesia complications , the patient was placed in a left lateral position and sedation was given. A digital rectal exam wa s performed, which revealed moni blood in the rectal vault. The scope was then inserted into the re ctum and was able to be advanced to the transverse colon. There was active bleeding visualized at th e distal sigmoid, which was treated as detailed below. After the completion of examination, scope an d equipment were withdrawn and procedure terminated in a safe manner. Findings: Fresh blood was seen from the rectum and all the way up till the descending colon. No alison dence of blood or old residual blood seen in the transverse colon. At the site of the anastomosis in the sigmoid region around 6 o'clock position at the site of polypectomy, a bleeding vessel was seen with ulceration around it. This was first injected with 4 mL of epinephrine 1:10,000 and then 3 clip s were placed to stop the bleeding. The maneuver was successful and the bleeding had completely subs ided due to the clips being placed. No other site of bleeding was identified. Complications: None. Tolerance To Anesthesia: Excellent. Postoperative Diagnosis: Post polypectomy ulcer with bleeding vessel, status post injection and clip s, which was successful. Plan: Continue current management. Can start the patient on clear liquid diet, antibiotics. We shaheed l recommend observation overnight to monitor for any recurrent bleeding. If no further bleeding, the patient can be discharged tomorrow on a soft diet. US/MODL Voice ID: [id number] Report ID: [id number]
== END 2021-01-13 14:29 | disposition home or self-care (01) ==
LOC: ER 10:06 → INTOOBSV 12:33 → ERHOLD 12:33 → 2ND 13:29
PROVIDERS: ADMIT Family Medicine; ATTEND Family Medicine
PROC: 0W3P8ZZ Control Bleeding in Gastrointestinal Tract, Via Natural or Artificial Opening Endoscopic (ICD-10-PCS; principal; 2021-01-12 10:00)
DX: K91.840 Postprocedural hemorrhage of a digestive system organ or structure following a digestive system procedure (principal); K91.89 Other postprocedural complications and disorders of digestive system; K63.3 Ulcer of intestine; Y84.8 Other medical procedures as the cause of abnormal reaction of the patient, or of later complication, without mention of misadventure at the time of the procedure; K63.89 Other specified diseases of intestine; E03.9 Hypothyroidism, unspecified; E87.6 Hypokalemia; Z85.038 Personal history of other malignant neoplasm of large intestine; Z90.49 Acquired absence of other specified parts of digestive tract; Z20.822 Contact with and (suspected) exposure to COVID-19
CPT/HCPCS: 45382; 85025 ×2; 80048 ×2; 36415 ×2; 86900; 83735; 86850; 85610; 86901; 80076; 84443; 84484; 84439; 83690; 83880; 71045; 96375; 96374; 99284; U0003; J2704; J0171; J2543; G0378 ×4; J7030; J0744 ×2